=== PATIENT | male | born 1995 | race Caucasian/White ===

== ENCOUNTER 2017-01-31 18:11 | Inpatient (IN) | payer SELFPAY ==
[2017-01-31] MEDS ORDERED: Diphtheria,Pertussis(Acell),Tetanus Vaccine 0.5 ML Syringe IM ONE (18:16)
[2017-01-31] MEDS ORDERED: Ondansetron 4 MG/2 ML SDV IVPUSH ONE (18:16)
[2017-01-31] MEDS ORDERED: Sodium Chloride 0.9% 1,000 ML IV ONE (18:16)
[2017-01-31] MEDS ORDERED: Sodium Chloride 0.9% 2.5 ML Syringe FLUSH PRN (18:18)
[2017-01-31] MEDS ORDERED: Sodium Chloride 0.9% 10 ML Syringe FLUSH PRN (18:18)
[2017-01-31] MEDS ORDERED: HYDROmorphone 1 MG/ML Syringe ONE (18:20)
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
[2017-01-31 19:10] LABS: CHLORIDE,CL 106 mmol/L (98-110); SODIUM,NA 138 mmol/L (136-146)
[2017-01-31] MEDS ORDERED: Iopamidol 755 MG/ML 500 ML Multipack Bottle IVPUSH STA (19:17)
[2017-01-31] MEDS ORDERED: HYDROmorphone 2 MG/ML Syringe IVPUSH PRN (19:49)
[2017-01-31] MEDS: HYDROmorphone 2 MG/ML Syringe IVPUSH ONE (19:53)
[2017-01-31] MEDS ORDERED: Clindamycin Phosphate in D5W 900 MG in Premix Bag 1 BAG IV ONE ×2 (19:55)
[2017-01-31] MEDS ORDERED: Ondansetron 4 MG/2 ML SDV ONE (20:10)
[2017-01-31] MEDS ORDERED: Rocuronium 10 MG/ML 10 ML Syringe ONE (20:10)
[2017-01-31] MEDS ORDERED: Succinylcholine/Normal Saline 200 MG/10 ML Syringe ONE (20:10)
[2017-01-31] MEDS ORDERED: Lidocaine 2% 5 ML SDV ONE (20:10)
[2017-01-31] MEDS ORDERED: Propofol 200 MG/20 ML SDV ONE (20:10)
[2017-01-31] MEDS ORDERED: fentaNYL 250 MCG/5 ML SDV ONE (20:11)
[2017-01-31] MEDS ORDERED: Midazolam 1 MG/ML 2 ML SDV ONE (20:11)
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
--- NOTE | 2017-01-31 20:23 | PCM.PREANE ---
Preanesthetic Assessment - Anesthesia/Transfusion/Family Hx Anesthesia History: No Prior Anesthesia Family History of Anesthesia Reaction: No - Review of Systems General: No Symptoms Pulmonary: No Symptoms Cardiovascular: No Symptoms Gastrointestinal: No Symptoms Neurological: No Symptoms Other: Reports: None - Physical Assessment O2 Sat by Pulse Oximetry: 99 Respiratory Rate: 18 Vital Signs: Last Vital Signs Temp 97.9 F 01/31/17 18:22 Pulse 91 01/31/17 18:22 Resp 18 01/31/17 18:22 BP 120/79 01/31/17 18:22 Pulse Ox 97 01/31/17 20:12 Height: 6 ft 4 in Weight: 72.575 kg ASA Class: 2E Mental Status: Alert & Oriented x3 Airway Class: Mallampati = 2 Dentition: Reports: Broken Tooth/Teeth Thyro-Mental Finger Breadths: 3 Mouth Opening Finger Breadths: 3 ROM/Head Extension: Full Lungs: Clear to Auscultation, Normal Respiratory Effort Cardiovascular: Regular Rate, Regular Rhythm - Lab Values: Laboratory Last Values WBC 14.47 K/uL (4.0-11.0) H 01/31/17 18:36 RBC 5.44 M/uL (4.50-5.90) 01/31/17 18:36 Hgb 17.9 g/dL (13.0-17.0) H 01/31/17 18:36 Hct 49.1 % (38.0-50.0) 01/31/17 18:36 MCV 90.3 fL (80.0-98.0) 01/31/17 18:36 MCH 32.9 pg (27.0-32.0) H 01/31/17 18:36 MCHC 36.5 g/dL (31.0-37.0) 01/31/17 18:36 RDW Std Deviation 40.7 fl (28.0-62.0) 01/31/17 18:36 RDW Coeff of Marissa 12 % (11.0-15.0) 01/31/17 18:36 Plt Count 201 K/uL (150-400) 01/31/17 18:36 MPV 12.10 fL (7.40-12.00) H 01/31/17 18:36 Neut % (Auto) 76.1 % (48.0-80.0) 01/31/17 18:36 Lymph % (Auto) 15.1 % (16.0-40.0) L 01/31/17 18:36 [place] % (Auto) 7.9 % (0.0-15.0) 01/31/17 18:36 Eos % (Auto) 0.7 % (0.0-7.0) 01/31/17 18:36 Baso % (Auto) 0.2 % (0.0-1.5) 01/31/17 18:36 Neut # (Auto) 11.0 K/uL (1.4-5.7) H 01/31/17 18:36 Lymph # (Auto) 2.2 K/uL (0.6-2.4) 01/31/17 18:36 [place] # (Auto) 1.2 K/uL (0.0-0.8) H 01/31/17 18:36 Eos # (Auto) 0.1 K/uL (0.0-0.7) 01/31/17 18:36 Baso # (Auto) 0.0 K/uL (0.0-0.1) 01/31/17 18:36 Nucleated RBC % 0.0 /100WBC 01/31/17 18:36 Nucleated RBCs # 0 K/uL 01/31/17 18:36 INR 1.09 (0.86-1.11) 01/31/17 18:36 Sodium 138 mmol/L (136-146) 01/31/17 18:36 Potassium 3.6 mmol/L (3.5-5.1) 01/31/17 18:36 Chloride 106 mmol/L (98-110) 01/31/17 18:36 Carbon Dioxide 21 mmol/L (21-31) 01/31/17 18:36 BUN 13 mg/dL (6.0-23.0) 01/31/17 18:36 Creatinine 1.0 mg/dL (0.6-1.5) 01/31/17 18:36 Est Cr Clr Drug Dosing TNP 01/31/17 18:36 Estimated GFR (MDRD) > 60.0 ml/min 01/31/17 18:36 Glucose 99 mg/dL (60-110) 01/31/17 18:36 Calcium 9.9 mg/dL (8.8-10.8) 01/31/17 18:36 Total Bilirubin 0.9 mg/dL (0.1-1.5) 01/31/17 18:36 AST 32 IU/L (5-40) 01/31/17 18:36 ALT 31 IU/L (8-54) 01/31/17 18:36 Alkaline Phosphatase 63 (40-150) 01/31/17 18:36 Total Protein 7.1 g/dL (6.0-8.0) 01/31/17 18:36 Albumin 4.4 g/dL (3.5-5.0) 01/31/17 18:36 Globulin 2.7 g/dL (2.0-3.5) 01/31/17 18:36 Albumin/Globulin Ratio 1.6 (1.3-2.8) 01/31/17 18:36 Lipase 10 U/L (7-80) 01/31/17 18:36 Ethyl Alcohol < 10.0 mg/dL 01/31/17 18:36 Blood Type A POSITIVE 01/31/17 18:36 Antibody Screen NEGATIVE 01/31/17 18:36 - Allergies Allergies/Adverse Reactions: Allergies Allergy/AdvReac Type Severity Reaction Status Date / Time Penicillins Allergy Other Verified 01/31/17 18:22 - Acknowledgements Anesthesia Type Planned: General Anesthesia Pt an Appropriate Candidate for the Planned Anesthesia: Yes Alternatives and Risks of Anesthesia Discussed w Pt/Guardian: Yes Pt/Guardian Understands and Agrees with Anesthesia Plan: Yes PreAnesthesia Questionnaire HEENT History: Reports: None Cardiovascular History: Reports: None Respiratory History: Reports: Other (See Below) (Chest deformity since ) Gastrointestinal History: Reports: None Genitourinary History: Reports: None Musculoskeletal History: Reports: Other (See Below) (Acute Rt Femur Fx) Neurological History: Reports: Seizure (Pt states last seizure was "years ago" pt removed himself from medication not a doctor) Psychiatric History: Reports: None Endocrine/Metabolic History: Reports: None Other Hematologic History: Hx of Lupus Immunologic History: Reports: None Oncologic (Cancer) History: Reports: None Dermatologic History: Reports: None - Past Surgical History Musculoskeletal Surgical History: Reports: Other (See Below) (RUE fracture in past, no residual hardware) - SUBSTANCE USE Smoking Status *Q: Current Every Day Smoker Recreational Drug Use History: No - CURRENT (IN HOUSE) MEDS Current Meds: Current Medications Hydromorphone HCl (Dilaudid) 0.5 - 1 mg IVPUSH Q3H PRN PRN Reason: Pain Last Admin: 01/31/17 19:49 Dose: 1 mg Clindamycin Phosphate 900 mg/ (Premix) 50 mls @ 100 mls/hr IV ONETIME ONE Stop: 01/31/17 20:24 Sodium Chloride (Saline Flush) 10 ml FLUSH ASDIRECTED PRN PRN Reason: Keep Vein Open Sodium Chloride (Saline Flush) 2.5 ml FLUSH ASDIRECTED PRN PRN Reason: Keep Vein Open Discontinued Medications Diphtheria/Tetanus/Acell Pertussis (Adacel) 0.5 ml IM .ONCE ONE Stop: 01/31/17 18:17 Last Admin: 01/31/17 19:46 Dose: 0.5 ml Fentanyl (Sublimaze) Confirm Administered Dose 250 mcg .ROUTE .STK-MED ONE Stop: 01/31/17 20:12 Hydromorphone HCl (Dilaudid) 1 mg IVPUSH ONETIME ONE Stop: 01/31/17 18:17 Hydromorphone HCl (Dilaudid) Confirm Administered Dose 1 mg .ROUTE .STK-MED ONE Stop: 01/31/17 18:21 Sodium Chloride (Normal Saline) 1,000 mls @ 999 mls/hr IV STAT ONE Stop: 01/31/17 19:16 Iopamidol (Isovue Multipack-370 (76%)) 100 ml IVPUSH ONETIME STA Stop: 01/31/17 19:18 Last Admin: 01/31/17 19:17 Dose: 100 ml Lidocaine (Xylocaine-Mpf 2%) Confirm Administered Dose 5 ml .ROUTE .STK-MED ONE Stop: 01/31/17 20:11 Midazolam HCl (Versed 1 Mg/Ml) Confirm Administered Dose 2 mg .ROUTE .STK-MED ONE Stop: 01/31/17 20:12 Ondansetron HCl (Zofran) 4 mg IVPUSH ONETIME ONE Stop: 01/31/17 18:17 Last Admin: 01/31/17 19:45 Dose: 4 mg Ondansetron HCl (Zofran) Confirm Administered Dose 4 mg .ROUTE .STK-MED ONE Stop: 01/31/17 20:11 Propofol (Diprivan 20 Ml) Confirm Administered Dose 200 mg .ROUTE .STK-MED ONE Stop: 01/31/17 20:11 Rocuronium [place] (Zemuron) Confirm Administered Dose 100 mg .ROUTE .STK-MED ONE Stop: 01/31/17 20:11 Succinylcholine Chloride (Succinylcholine In Ns Pf) Confirm Administered Dose 200 mg .ROUTE .STK-MED ONE Stop: 01/31/17 20:11
--- NOTE | 2017-01-31 20:40 | PCM.OPNOTE ---
- General Post-Op/Procedure Note Date of Surgery/Procedure: 01/31/17 Operative Procedure(s): CR R femur with IM rodding Anesthesia Technique: General ET Tube Primary Surgeon: Shweta Tovar Goring Cutter: Zelda Farrell in mLs: 300 Condition: Good Free Text/Narrative:: #[id number]
[2017-01-31] MEDS ORDERED: Phenylephrine/Normal Saline 100 MCG/ML 10 ML Syringe ONE (21:18)
[2017-01-31] MEDS ORDERED: Acetaminophen/HYDROcodone 325-5 MG Tab PO PRN (21:19)
[2017-01-31] MEDS ORDERED: Acetaminophen 325 MG Tab PO PRN (21:19)
[2017-01-31] MEDS ORDERED: Ondansetron 4 MG/2 ML SDV IVPUSH PRN (21:19)
[2017-01-31] MEDS ORDERED: ePHEDrine 50 MG/ML SDV ONE (21:21)
[2017-01-31] MEDS ORDERED: Morphine PF 30 MG/30 ML PCA Vial IV SCH (21:30)
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
[2017-01-31] MEDS ORDERED: HYDROmorphone 2 MG/ML Syringe ONE (23:45)
[2017-02-01] MEDS ORDERED: Aluminum Hydroxide/Magnesium Hydroxide/Simethicone Susp 30 ML Cup PO PRN (00:07)
[2017-02-01] MEDS ORDERED: Ketorolac 30 MG/ML SDV IVPUSH PRN (00:07)
[2017-02-01] MEDS ORDERED: Bisacodyl 10 MG Supp RECTAL PRN (00:07)
[2017-02-01] MEDS ORDERED: Ondansetron 4 MG/2 ML SDV IV PRN (00:07)
[2017-02-01] MEDS ORDERED: diphenhydrAMINE 25 MG Cap PO PRN (00:07)
[2017-02-01] MEDS ORDERED: fentaNYL 100 MCG/2 ML SDV IVPUSH PRN (00:23)
[2017-02-01] MEDS ORDERED: Ondansetron 4 MG/2 ML SDV IVPUSH PRN (00:27)
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
--- NOTE | 2017-02-01 00:53 | PCM.POSTAN ---
POST ANESTHESIA ASSESSMENT - MENTAL STATUS Mental Status: Alert, Oriented - VITAL SIGNS Pulse Rate: 88 SaO2: 97 Resp Rate: 12 Blood Pressure: 139/85 - RESPIRATORY Respiratory Status: Respiratory Rate WNL, Airway Patent, O2 Saturation Stable - CARDIOVASCULAR CV Status: Pulse Rate WNL, Blood Pressure Stable - GASTROINTESTINAL GI Status: No Symptoms - PAIN Pain Score: 1 - POST OP HYDRATION Hydration Status: Adequate & Stable
[2017-02-01] MEDS: HYDROmorphone 2 MG/ML Syringe IVPUSH ONE (01:17)
[2017-02-01] MEDS: Lactated Ringers 1,000 ML IV SCH ×2 (01:24→09:33)
[2017-02-01] MEDS: Acetaminophen/HYDROcodone 325-10 MG Tab PO PRN ×4 (03:04→22:10)
[2017-02-01] MEDS: Clindamycin Phosphate in D5W 600 MG in Premix Bag 50 BAG IV SCH ×4 (05:34→13:59)
--- NOTE | 2017-02-01 05:39 | PCM48HPAN ---
Post Anesthesia Note - EVALUATION WITHIN 48HRS OF ANESTHETIC Vital Signs in Normal Range: Yes Patient Participated in Evaluation: Yes Respiratory Function Stable: Yes Airway Patent: Yes Cardiovascular Function Stable: Yes Hydration Status Stable: Yes Pain Control Satisfactory: Yes Nausea and Vomiting Control Satisfactory: Yes Mental Status Recovered: Yes
[2017-02-01 06:00] LABS: CHLORIDE,CL 104 mmol/L (98-110); SODIUM,NA 137 mmol/L (136-146)
[2017-02-01] MEDS: Rivaroxaban 10 MG Tab PO SCH (08:00)
[2017-02-01] MEDS: Docusate Sodium 100 MG Cap PO SCH ×2 (08:00→21:05)
--- NOTE | 2017-02-01 08:54 | PCM.SURGPN ---
- General Info Date of Service: 01/31/17 Date of Surgery/Procedure: 02/01/17 POD#: 1 Functional Status: Reports: Pain Controlled, Tolerating Diet, Urinating. Denies : Ambulating - Review of Systems General: Reports: No Symptoms HEENT: Reports: No Symptoms Pulmonary: Denies: Cough Cardiovascular: Denies: Chest Pain, Palpitations Gastrointestinal: Denies: Nausea Musculoskeletal: Reports: Shoulder Pain, Leg Pain Systems Review Comment:: pt sitting up in bed for breakfast tolerating PO intake well pain controlled with Montgomery 10/325 and morphine SUPERINTENDENT STATIONS has not been OOB c/o midshaft R thigh pain and R posterior shoulder pain no specific concerns today - Patient Data Vitals - Most Recent: Last Vital Signs Temp 97.3 F 02/01/17 08:00 Pulse 102 H 02/01/17 00:55 Resp 12 02/01/17 08:00 BP 112/64 02/01/17 08:00 Pulse Ox 99 02/01/17 08:00 Weight - Most Recent: 68 kg I&O - Last 24 Hours: Intake & Output 01/31/17 02/01/17 02/01/17 22:59 06:59 14:59 Intake Total 2750 Output Total 500 Balance -500 2750 Lab Results Last 24 Hrs: Laboratory Results - last 24 hr 01/31/17 01/31/17 02/01/17 Range/Units 21:35 21:35 05:25 WBC 11.28 H (4.0-11.0) K/uL RBC 4.29 L (4.50-5.90) M/uL Hgb 13.6 (13.0-17.0) g/dL Hct 39.7 (38.0-50.0) % MCV 92.5 (80.0-98.0) fL MCH 31.7 (27.0-32.0) pg MCHC 34.3 (31.0-37.0) g/dL RDW Std Deviation 41.8 (28.0-62.0) fl RDW Coeff of Marissa 13 (11.0-15.0) % Plt Count 158 (150-400) K/uL MPV 11.40 (7.40-12.00) fL Neut % (Auto) 72.4 (48.0-80.0) % Lymph % (Auto) 16.1 (16.0-40.0) % [place] % (Auto) 11.1 (0.0-15.0) % Eos % (Auto) 0.3 (0.0-7.0) % Baso % (Auto) 0.1 (0.0-1.5) % Neut # (Auto) 8.2 H (1.4-5.7) K/uL Lymph # (Auto) 1.8 (0.6-2.4) K/uL [place] # (Auto) 1.3 H (0.0-0.8) K/uL Eos # (Auto) 0.0 (0.0-0.7) K/uL Baso # (Auto) 0.0 (0.0-0.1) K/uL Nucleated RBC % 0.0 /100WBC Nucleated RBCs # 0 K/uL Sodium (136-146) mmol/L Potassium (3.5-5.1) mmol/L Chloride (98-110) mmol/L Carbon Dioxide (21-31) mmol/L BUN (6.0-23.0) mg/dL Creatinine (0.6-1.5) mg/dL Est Cr Clr Drug Dosing mL/min Estimated GFR (MDRD) ml/min Glucose (60-110) mg/dL Calcium (8.8-10.8) mg/dL Urine Color YELLOW Urine Appearance CLEAR Urine pH 7.0 (5.0-8.0) Ur Specific [place] <= 1.005 (1.001-1.035) Urine Protein NEGATIVE (NEGATIVE) mg/dL Urine Glucose (UA) NEGATIVE (NEGATIVE) mg/dL Urine Ketones TRACE H (NEGATIVE) mg/dL Urine Occult Blood MODERATE (NEGATIVE) Urine Nitrite NEGATIVE (NEGATIVE) Urine Bilirubin NEGATIVE (NEGATIVE) Urine Urobilinogen 0.2 (<2.0) EU/dL Ur Leukocyte Esterase NEGATIVE (NEGATIVE) Urine RBC 2-4 (0-2/HPF) Urine WBC 0-1 (0-5/HPF) Ur Epithelial Cells FEW (NONE-FEW) Urine Bacteria RARE (NEGATIVE) Urine Opiates Screen NEGATIVE (NEGATIVE) Ur Oxycodone Screen NEGATIVE (NEGATIVE) Urine Methadone Screen NEGATIVE (NEGATIVE) Ur Barbiturates Screen NEGATIVE (NEGATIVE) Ur Phencyclidine Scrn NEGATIVE (NEGATIVE) Ur Amphetamine Screen NEGATIVE (NEGATIVE) U Methamphetamines Scrn NEGATIVE (NEGATIVE) U Benzodiazepines Scrn NEGATIVE (NEGATIVE) U Cocaine Metab Screen NEGATIVE (NEGATIVE) U Marijuana (THC) Screen NEGATIVE (NEGATIVE) 02/01/17 Range/Units 05:25 WBC (4.0-11.0) K/uL RBC (4.50-5.90) M/uL Hgb (13.0-17.0) g/dL Hct (38.0-50.0) % MCV (80.0-98.0) fL MCH (27.0-32.0) pg MCHC (31.0-37.0) g/dL RDW Std Deviation (28.0-62.0) fl RDW Coeff of Marissa (11.0-15.0) % Plt Count (150-400) K/uL MPV (7.40-12.00) fL Neut % (Auto) (48.0-80.0) % Lymph % (Auto) (16.0-40.0) % [place] % (Auto) (0.0-15.0) % Eos % (Auto) (0.0-7.0) % Baso % (Auto) (0.0-1.5) % Neut # (Auto) (1.4-5.7) K/uL Lymph # (Auto) (0.6-2.4) K/uL [place] # (Auto) (0.0-0.8) K/uL Eos # (Auto) (0.0-0.7) K/uL Baso # (Auto) (0.0-0.1) K/uL Nucleated RBC % /100WBC Nucleated RBCs # K/uL Sodium 137 (136-146) mmol/L Potassium 4.1 (3.5-5.1) mmol/L Chloride 104 (98-110) mmol/L Carbon Dioxide 26 (21-31) mmol/L BUN 11 (6.0-23.0) mg/dL Creatinine 0.8 (0.6-1.5) mg/dL Est Cr Clr Drug Dosing 139.31 mL/min Estimated GFR (MDRD) > 60.0 ml/min Glucose 111 H (60-110) mg/dL Calcium 8.2 L (8.8-10.8) mg/dL Urine Color Urine Appearance Urine pH (5.0-8.0) Ur Specific [place] (1.001-1.035) Urine Protein (NEGATIVE) mg/dL Urine Glucose (UA) (NEGATIVE) mg/dL Urine Ketones (NEGATIVE) mg/dL Urine Occult Blood (NEGATIVE) Urine Nitrite (NEGATIVE) Urine Bilirubin (NEGATIVE) Urine Urobilinogen (<2.0) EU/dL Ur Leukocyte Esterase (NEGATIVE) Urine RBC (0-2/HPF) Urine WBC (0-5/HPF) Ur Epithelial Cells (NONE-FEW) Urine Bacteria (NEGATIVE) Urine Opiates Screen (NEGATIVE) Ur Oxycodone Screen (NEGATIVE) Urine Methadone Screen (NEGATIVE) Ur Barbiturates Screen (NEGATIVE) Ur Phencyclidine Scrn (NEGATIVE) Ur Amphetamine Screen (NEGATIVE) U Methamphetamines Scrn (NEGATIVE) U Benzodiazepines Scrn (NEGATIVE) U Cocaine Metab Screen (NEGATIVE) U Marijuana (THC) Screen (NEGATIVE) Med Orders - Current: Current Medications Acetaminophen (Tylenol) 325 mg PO Q4H PRN PRN Reason: Fever Greater Than 101 Hydrocodone Bitart/Acetaminophen (Mont[place] 325-10 Mg) 1 - 2 tab PO Q4H PRN PRN Reason: Pain Last Admin: 02/01/17 07:04 Dose: 2 tab Al Hydroxide/Mg Hydroxide (Mag-Al Plus) 30 ml PO Q4H PRN PRN Reason: indigestion Bisacodyl (Dulcolax) 10 mg RECTAL DAILY PRN PRN Reason: Constipation Diphenhydramine HCl (Benadryl) 25 - 50 mg PO Q6H PRN PRN Reason: Itching Docusate Sodium (Colace) 100 mg PO BID [facility] Last Admin: 02/01/17 08:00 Dose: 100 mg Fentanyl (Sublimaze) 50 mcg IVPUSH Q5M PRN PRN Reason: Pain (severe 7-10) Stop: 02/02/17 00:23 Hydromorphone HCl (Dilaudid) 0.5 - 1 mg IVPUSH Q3H PRN PRN Reason: Pain Last Admin: 01/31/17 19:49 Dose: 1 mg Lactated Ringer's (Ringers, Lactated) 1,000 mls @ 125 mls/hr IV ASDIRECTED [facility] Last Admin: 02/01/17 01:24 Dose: 125 mls/hr Clindamycin Phosphate 600 mg/ (Premix) 50 mls @ 100 mls/hr IV Q8H [facility] Stop: 02/01/17 14:29 Last Admin: 02/01/17 05:34 Dose: 100 mls/hr Ketorolac Tromethamine (Toradol) 30 mg IVPUSH Q6H PRN PRN Reason: Pain Stop: 02/01/17 09:00 Last Admin: 02/01/17 06:14 Dose: 30 mg Morphine Sulfate (Morphine Architectural Modeler 30 Mg In 30 Ml) 30 mg IV SEECOMMENT [facility] Last Admin: 02/01/17 01:24 Dose: 30 mg Ondansetron HCl (Zofran) 4 mg IVPUSH Q6H PRN PRN Reason: Nausea/Vomiting Ondansetron HCl (Zofran) 4 mg IVPUSH Q6HR PRN PRN Reason: NAUSEA/VOMITING Rivaroxaban (Xarelto) 10 mg PO DAILY [facility] Last Admin: 02/01/17 08:00 Dose: 10 mg Sodium Chloride (Saline Flush) 10 ml FLUSH ASDIRECTED PRN PRN Reason: Keep Vein Open Sodium Chloride (Saline Flush) 2.5 ml FLUSH ASDIRECTED PRN PRN Reason: Keep Vein Open Discontinued Medications Hydrocodone Bitart/Acetaminophen ([place] 325-5 Mg) 1 - 2 tab PO Q4H PRN PRN Reason: Pain (moderate 4-6) Diphtheria/Tetanus/Acell Pertussis (Adacel) 0.5 ml IM .ONCE ONE Stop: 01/31/17 18:17 Last Admin: 01/31/17 19:46 Dose: 0.5 ml Ephedrine Sulfate (Ephedrine Sulfate) Confirm Administered Dose 50 mg .ROUTE .STK-MED ONE Stop: 01/31/17 21:22 Fentanyl (Sublimaze) Confirm Administered Dose 250 mcg .ROUTE .STK-MED ONE Stop: 01/31/17 20:12 Glycopyrrolate () Confirm Administered Dose 1 mg .ROUTE .STK-MED ONE Stop: 01/31/17 21:39 Hydromorphone HCl (Dilaudid) 1 mg IVPUSH ONETIME ONE Stop: 01/31/17 18:17 Last Admin: 02/01/17 01:17 Dose: Not Given Hydromorphone HCl (Dilaudid) Confirm Administered Dose 1 mg .ROUTE .STK-MED ONE Stop: 01/31/17 18:21 Last Admin: 02/01/17 01:18 Dose: Not Given Hydromorphone HCl (Dilaudid) Confirm Administered Dose 2 mg .ROUTE .STK-MED ONE Stop: 01/31/17 23:46 Sodium Chloride (Normal Saline) 1,000 mls @ 999 mls/hr IV STAT ONE Stop: 01/31/17 19:16 Last Admin: 02/01/17 01:17 Dose: Not Given Clindamycin Phosphate 900 mg/ (Premix) 50 mls @ 100 mls/hr IV ONETIME ONE Stop: 01/31/17 20:24 Last Admin: 01/31/17 20:53 Dose: 100 mls/hr Iopamidol (Isovue Multipack-370 (76%)) 100 ml IVPUSH ONETIME STA Stop: 01/31/17 19:18 Last Admin: 01/31/17 19:17 Dose: 100 ml Lidocaine (Xylocaine-Mpf 2%) Confirm Administered Dose 5 ml .ROUTE .STK-MED ONE Stop: 01/31/17 20:11 Midazolam HCl (Versed 1 Mg/Ml) Confirm Administered Dose 2 mg .ROUTE .STK-MED ONE Stop: 01/31/17 20:12 Ondansetron HCl (Zofran) 4 mg IVPUSH ONETIME ONE Stop: 01/31/17 18:17 Last Admin: 01/31/17 19:45 Dose: 4 mg Ondansetron HCl (Zofran) Confirm Administered Dose 4 mg .ROUTE .STK-MED ONE Stop: 01/31/17 20:11 Ondansetron HCl (Zofran) 4 mg IV Q6HR PRN PRN Reason: NAUSEA/VOMITING Phenylephrine HCl (Phenylephrine In Ns 100 Mcg/Ml) Confirm Administered Dose 1 mg .ROUTE .STK-MED ONE Stop: 01/31/17 21:19 Propofol (Diprivan 20 Ml) Confirm Administered Dose 200 mg .ROUTE .STK-MED ONE Stop: 01/31/17 20:11 Rocuronium [place] (Zemuron) Confirm Administered Dose 100 mg .ROUTE .STK-MED ONE Stop: 01/31/17 20:11 Succinylcholine Chloride (Succinylcholine In Ns Pf) Confirm Administered Dose 200 mg .ROUTE .STK-MED ONE Stop: 01/31/17 20:11 - Exam Wound/Incisions: Dressing Dry and Intact. No: No Drainage, Erythema General: Alert, Oriented Cardiovascular: Regular Rate, Regular Rhythm Extremities: Other (RLE - ttp through thigh, thigh and calf compartments soft. dressings clean and dry. at/ehl/gastroc 5/5, dp 2+, sensation intact distally) Physical Findings Comment:: vss, afeb hgb 13.6 - Problem List Review Problem List Initiated/Reviewed/Updated: Yes - My Orders Last 24 Hours: Active Orders 24 hr Category Date Time Status Admission Status [Patient Status] [ADT] Routine ADT 01/31/17 21:20 Active Activity as Tolerated [RC] .Routine Care 02/01/17 00:07 Active Antiembolic Devices [RC] PER UNIT ROUTINE Care 01/31/17 21:22 Active Antiembolic Devices [RC] PER UNIT ROUTINE Care 02/01/17 00:09 Active Bradycardia-Neuroaxis [employer] [RC] ROUTINE Care 02/01/17 00:23 Active Dressing Change [Wound Care] [RC] Q12H Care 02/01/17 00:07 Active Hypertension-Neuroaxis [employer] [RC] ROUTINE Care 02/01/17 00:23 Active Hypotension-Neuroaxis [employer] [RC] ROUTINE Care 02/01/17 00:23 Active Intake and Output [RC] Q12H Care 01/31/17 21:18 Active Neurovascular Check [RC] Q2HR Care 02/01/17 00:06 Active Notify Provider Consults [RC] ASDIRECTED Care 01/31/17 21:25 Active Notify Provider Vital Signs [RC] ASDIRECTED Care 02/01/17 00:07 Active Oxygen Therapy [RC] PRN Care 01/31/17 21:18 Active Pulse Oximetry [RC] INTERMITTENT Care 01/31/17 21:18 Active RT Incentive Spirometry [RC] ASDIRECTED Care 02/01/17 00:06 Active RT Incentive Spirometry [RC] Q1HWA Care 01/31/17 21:18 Active Vital Signs [RC] Q1HR Care 01/31/17 21:18 Active Consult to Physician [CONS] Stat Cons 01/31/17 21:24 Active PT Evaluation and Treatment [CONS] Routine Cons 02/01/17 00:06 Active Regular Diet [DIET] Diet 02/01/17 Breakfast Active Fluoro>1Hr [CR] Routine Exams 01/31/17 23:17 Taken HEMOGLOBIN/HEMATOCRIT,HH [HEME] DAILY Lab 02/02/17 06:00 Ordered HEMOGLOBIN/HEMATOCRIT,HH [HEME] DAILY Lab 02/03/17 06:00 Ordered Acetaminophen [Tylenol] Med 01/31/17 21:19 Active 325 mg PO Q4H PRN Acetaminophen/HYDROcodone [Montgomery 325-10 MG] Med 02/01/17 00:07 Active 1 - 2 tab PO Q4H PRN Alum Hydrox/Mag Hydrox/Simeth [Mag-Al Plus] Med 02/01/17 00:07 Active 30 ml PO Q4H PRN Bisacodyl [Dulcolax] Med 02/01/17 00:07 Active 10 mg RECTAL DAILY PRN Clindamycin Phosphate in D5W [Cleocin in D5W] 600 mg Med 02/01/17 06:00 Active Premix Bag 50 bag IV Q8H Docusate Sodium [Colace] Med 02/01/17 09:00 Active 100 mg PO BID Ketorolac [Toradol] Med 02/01/17 00:07 Active 30 mg IVPUSH Q6H PRN Lactated Ringers [Ringers, Lactated] 1,000 ml Med 01/31/17 21:30 Active IV ASDIRECTED Morphine PF [Morphine SUPERINTENDENT STATIONS 30 MG in 30 ML] Med 01/31/17 21:30 Active 30 mg IV SEECOMMENT Ondansetron [Zofran] Med 01/31/17 21:19 Active 4 mg IVPUSH Q6H PRN Ondansetron [Zofran] Med 02/01/17 00:27 Active 4 mg IVPUSH Q6HR PRN Rivaroxaban [Xarelto] Med 02/01/17 09:00 Active 10 mg PO DAILY diphenhydrAMINE [Benadryl] Med 02/01/17 00:07 Active 25 - 50 mg PO Q6H PRN fentaNYL [Sublimaze] Med 02/01/17 00:23 Active 50 mcg IVPUSH Q5M PRN Antiembolic Hose [OM.PC] PER UNIT ROUTINE Oth 01/31/17 23:00 Ordered Antiembolic Hose [OM.PC] PER UNIT ROUTINE Oth 02/01/17 23:00 Ordered Antiembolic Hose [OM.PC] PER UNIT ROUTINE Oth 02/02/17 23:00 Ordered Ice Therapy [OM.PC] Routine Oth 02/01/17 00:06 Ordered Sequential Compression Device [OM.PC] Routine Oth 02/01/17 00:06 Ordered Resuscitation Status Routine Resus Stat 01/31/17 21:17 Ordered Medication Orders Acetaminophen (Tylenol) 325 mg PO Q4H PRN PRN Reason: Fever Greater Than 101 Hydrocodone Bitart/Acetaminophen ([place] 325-10 Mg) 1 - 2 tab PO Q4H PRN PRN Reason: Pain Last Admin: 02/01/17 07:04 Dose: 2 tab Admin: 02/01/17 03:04 Dose: 2 tab Al Hydroxide/Mg Hydroxide (Mag-Al Plus) 30 ml PO Q4H PRN PRN Reason: indigestion Bisacodyl (Dulcolax) 10 mg RECTAL DAILY PRN PRN Reason: Constipation Diphenhydramine HCl (Benadryl) 25 - 50 mg PO Q6H PRN PRN Reason: Itching Docusate Sodium (Colace) 100 mg PO BID [facility] Last Admin: 02/01/17 08:00 Dose: 100 mg Fentanyl (Sublimaze) 50 mcg IVPUSH Q5M PRN PRN Reason: Pain (severe 7-10) Stop: 02/02/17 00:23 Hydromorphone HCl (Dilaudid) 0.5 - 1 mg IVPUSH Q3H PRN PRN Reason: Pain Last Admin: 01/31/17 19:49 Dose: 1 mg Lactated Ringer's (Ringers, Lactated) 1,000 mls @ 125 mls/hr IV ASDIRECTED [facility] Last Admin: 02/01/17 01:24 Dose: 125 mls/hr Clindamycin Phosphate 600 mg/ (Premix) 50 mls @ 100 mls/hr IV Q8H [facility] Stop: 02/01/17 14:29 Last Admin: 02/01/17 05:34 Dose: 100 mls/hr Ketorolac Tromethamine (Toradol) 30 mg IVPUSH Q6H PRN PRN Reason: Pain Stop: 02/01/17 09:00 Last Admin: 02/01/17 06:14 Dose: 30 mg Morphine Sulfate (Morphine Architectural Modeler 30 Mg In 30 Ml) 30 mg IV SEECOMMENT [facility] Last Admin: 02/01/17 01:24 Dose: 30 mg Ondansetron HCl (Zofran) 4 mg IVPUSH Q6H PRN PRN Reason: Nausea/Vomiting Ondansetron HCl (Zofran) 4 mg IVPUSH Q6HR PRN PRN Reason: NAUSEA/VOMITING Rivaroxaban (Xarelto) 10 mg PO DAILY [facility] Last Admin: 02/01/17 08:00 Dose: 10 mg Sodium Chloride (Saline Flush) 10 ml FLUSH ASDIRECTED PRN PRN Reason: Keep Vein Open Sodium Chloride (Saline Flush) 2.5 ml FLUSH ASDIRECTED PRN PRN Reason: Keep Vein Open - Assessment Assessment (Free Text/Narrative):: POD#1 CR with IM nail R femur fx - Plan Plan (Free Text/Narrative):: continue pain management SUPERINTENDENT STATIONS discontinued at Dr. Rodríguez's discretion will DC IV dilaudid PT today for crutch training, TTWB RLE TTWB restrictions discussed with pt Xarelto 10mg PO for dvt prophylaxis (will continue for 4 weeks post-op) discussed requirements for discharge once cleared by Dr. Rodríguez - tolerating PO intake, pain controlled with PO medications, able to ambulate with crutches, void pt verbalizes understanding and agrees will schedule 2wk and 6wk post-op appointment for him.
--- NOTE | 2017-02-01 08:54 | CR ---
EXAMINATION: Portable chest radiograph. HISTORY: Contusions. FINDINGS: The trachea is midline. The cardiomediastinal silhouette is within normal limits. No pulmonary infil trates, effusions or pneumothorax. Osseous structures appear unremarkable. IMPRESSION: No acute cardiopulmonary process.
--- NOTE | 2017-02-01 10:08 | CR ---
EXAMINATION: Right femur HISTORY: Reduction COMPARISON: 01/31/2017 TECHNIQUE: 7 fluoroscopic images provided FINDINGS/IMPRESSION: Operative control films demonstrate an intramedullary sharron traversing a reduced mid right femur fracture.
--- NOTE | 2017-02-01 13:22 | PCM.SN ---
- Free Text/Narrative Note: Patient seen and examined at 1000. Patient doing well. No c/o chest pain or SOB. Pain controlled with SITE PROJECT MANAGER. Has not been OOB yet. Exam of RLE shows dressings intact. Thigh soft. No calf TTP. AT/EHL/gastroc 11/02. Sensation intact. DP 2+. 1. plan to transfer to regular floor today 2. watch O2 sats 3. d/c SITE PROJECT MANAGER--change to po meds 4. up with PT 5. plan possible d/c home tomorrow
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
[2017-02-01] MEDS: Nicotine 21 MG/24 Hr Patch TRDERM SCH (16:56)
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
[2017-02-02] MEDS: Acetaminophen/HYDROcodone 325-10 MG Tab PO PRN ×3 (02:44→10:45)
[2017-02-02] MEDS: Docusate Sodium 100 MG Cap PO SCH (08:09)
[2017-02-02] MEDS: Rivaroxaban 10 MG Tab PO SCH (08:09)
[2017-02-02] MEDS: Nicotine 21 MG/24 Hr Patch TRDERM SCH (09:47)
--- NOTE | 2017-02-02 10:23 | PCM.SURGPN ---
- General Info Date of Service: 02/02/17 Date of Surgery/Procedure: 01/31/17 POD#: 2 Functional Status: Reports: Pain Controlled, Tolerating Diet, Ambulating, Urinating - Review of Systems General: Reports: No Symptoms Pulmonary: Reports: No Symptoms Cardiovascular: Reports: No Symptoms Gastrointestinal: Reports: No Symptoms Musculoskeletal: Reports: Other (RLE pain, some L scapula pain with crutching) Systems Review Comment:: pt resting comfortably in bed did well with PT/stairs yesterday OOB independently would like to go home today - Patient Data Vitals - Most Recent: Last Vital Signs Temp 99.3 F 02/02/17 00:00 Pulse 87 02/02/17 00:00 Resp 20 02/02/17 04:00 BP 109/60 02/02/17 04:00 Pulse Ox 100 02/02/17 04:00 Weight - Most Recent: 68 kg I&O - Last 24 Hours: Intake & Output 02/01/17 02/02/17 02/02/17 22:59 06:59 14:59 Intake Total 1350 1290 Output Total 400 1350 Balance 950 -60 Lab Results Last 24 Hrs: Laboratory Results - last 24 hr 02/02/17 Range/Units 05:28 Hgb 11.5 L (13.0-17.0) g/dL Hct 33.8 L (38.0-50.0) % Med Orders - Current: Current Medications Acetaminophen (Tylenol) 325 mg PO Q4H PRN PRN Reason: Fever Greater Than 101 Hydrocodone Bitart/Acetaminophen ([place] 325-10 Mg) 1 - 2 tab PO Q4H PRN PRN Reason: Pain Last Admin: 02/02/17 06:42 Dose: 2 tab Al Hydroxide/Mg Hydroxide (Mag-Al Plus) 30 ml PO Q4H PRN PRN Reason: indigestion Bisacodyl (Dulcolax) 10 mg RECTAL DAILY PRN PRN Reason: Constipation Diphenhydramine HCl (Benadryl) 25 - 50 mg PO Q6H PRN PRN Reason: Itching Last Admin: 02/01/17 23:51 Dose: 25 mg Docusate Sodium (Colace) 100 mg PO BID JAY Last Admin: 02/02/17 08:09 Dose: 100 mg Hydromorphone HCl (Dilaudid) 0.5 - 1 mg IVPUSH Q3H PRN PRN Reason: Pain Last Admin: 01/31/17 19:49 Dose: 1 mg Nicotine (Habitrol) 21 mg TRDERM DAILY [facility] Last Admin: 02/02/17 09:47 Dose: Not Given Ondansetron HCl (Zofran) 4 mg IVPUSH Q6H PRN PRN Reason: Nausea/Vomiting Ondansetron HCl (Zofran) 4 mg IVPUSH Q6HR PRN PRN Reason: NAUSEA/VOMITING Rivaroxaban (Xarelto) 10 mg PO DAILY [facility] Last Admin: 02/02/17 08:09 Dose: 10 mg Sodium Chloride (Saline Flush) 10 ml FLUSH ASDIRECTED PRN PRN Reason: Keep Vein Open Sodium Chloride (Saline Flush) 2.5 ml FLUSH ASDIRECTED PRN PRN Reason: Keep Vein Open Discontinued Medications Hydrocodone Bitart/Acetaminophen ([place] 325-5 Mg) 1 - 2 tab PO Q4H PRN PRN Reason: Pain (moderate 4-6) Diphtheria/Tetanus/Acell Pertussis (Adacel) 0.5 ml IM .ONCE ONE Stop: 01/31/17 18:17 Last Admin: 01/31/17 19:46 Dose: 0.5 ml Ephedrine Sulfate (Ephedrine Sulfate) Confirm Administered Dose 50 mg .ROUTE .STK-MED ONE Stop: 01/31/17 21:22 Fentanyl (Sublimaze) Confirm Administered Dose 250 mcg .ROUTE .STK-MED ONE Stop: 01/31/17 20:12 Fentanyl (Sublimaze) 50 mcg IVPUSH Q5M PRN PRN Reason: Pain (severe 7-10) Stop: 02/02/17 00:23 Glycopyrrolate () Confirm Administered Dose 1 mg .ROUTE .STK-MED ONE Stop: 01/31/17 21:39 Hydromorphone HCl (Dilaudid) 1 mg IVPUSH ONETIME ONE Stop: 01/31/17 18:17 Last Admin: 02/01/17 01:17 Dose: Not Given Hydromorphone HCl (Dilaudid) Confirm Administered Dose 1 mg .ROUTE .STK-MED ONE Stop: 01/31/17 18:21 Last Admin: 02/01/17 01:18 Dose: Not Given Hydromorphone HCl (Dilaudid) Confirm Administered Dose 2 mg .ROUTE .STK-MED ONE Stop: 01/31/17 23:46 Sodium Chloride (Normal Saline) 1,000 mls @ 999 mls/hr IV STAT ONE Stop: 01/31/17 19:16 Last Admin: 02/01/17 01:17 Dose: Not Given Clindamycin Phosphate 900 mg/ (Premix) 50 mls @ 100 mls/hr IV ONETIME ONE Stop: 01/31/17 20:24 Last Admin: 01/31/17 20:53 Dose: 100 mls/hr Lactated Ringer's (Ringers, Lactated) 1,000 mls @ 125 mls/hr IV ASDIRECTED [facility] Last Admin: 02/01/17 09:33 Dose: 125 mls/hr Clindamycin Phosphate 600 mg/ (Premix) 50 mls @ 100 mls/hr IV Q8H [facility] Stop: 02/01/17 14:29 Last Admin: 02/01/17 13:59 Dose: 100 mls/hr Iopamidol (Isovue Multipack-370 (76%)) 100 ml IVPUSH ONETIME STA Stop: 01/31/17 19:18 Last Admin: 01/31/17 19:17 Dose: 100 ml Ketorolac Tromethamine (Toradol) 30 mg IVPUSH Q6H PRN PRN Reason: Pain Stop: 02/01/17 09:00 Last Admin: 02/01/17 06:14 Dose: 30 mg Lidocaine (Xylocaine-Mpf 2%) Confirm Administered Dose 5 ml .ROUTE .STK-MED ONE Stop: 01/31/17 20:11 Midazolam HCl (Versed 1 Mg/Ml) Confirm Administered Dose 2 mg .ROUTE .STK-MED ONE Stop: 01/31/17 20:12 Morphine Sulfate (Morphine [employer] 30 Mg In 30 Ml) 30 mg IV SEECOMMENT [facility] Last Admin: 02/01/17 01:24 Dose: 30 mg Ondansetron HCl (Zofran) 4 mg IVPUSH ONETIME ONE Stop: 01/31/17 18:17 Last Admin: 01/31/17 19:45 Dose: 4 mg Ondansetron HCl (Zofran) Confirm Administered Dose 4 mg .ROUTE .STK-MED ONE Stop: 08/03/17 20:11 Ondansetron HCl (Zofran) 4 mg IV Q6HR PRN PRN Reason: NAUSEA/VOMITING Phenylephrine HCl (Phenylephrine In Ns 100 Mcg/Ml) Confirm Administered Dose 1 mg .ROUTE .STK-MED ONE Stop: 01/31/17 21:19 Propofol (Diprivan 20 Ml) Confirm Administered Dose 200 mg .ROUTE .STK-MED ONE Stop: 01/31/17 20:11 Rocuronium [place] (Zemuron) Confirm Administered Dose 100 mg .ROUTE .STK-MED ONE Stop: 01/31/17 20:11 Succinylcholine Chloride (Succinylcholine In Ns Pf) Confirm Administered Dose 200 mg .ROUTE .STK-MED ONE Stop: 01/31/17 20:11 - Exam Wound/Incisions: Healing Well. No: Drainage, Erythema General: Alert, Oriented Cardiovascular: Regular Rate, Regular Rhythm Extremities: Other (RLE - ttp over fx site, thigh/calf soft. incisions clean/dry /cameron in place. at/ehl/gastroc 5/5, dp 2+, sensation intact distally) Physical Findings Comment:: vss, afeb hgb 11.5 - Problem List Review Problem List Initiated/Reviewed/Updated: Yes - My Orders Last 24 Hours: Active Orders 24 hr Category Date Time Status Change Admitting Physician [ADT] Routine ADT 02/01/17 09:31 Ordered Transfer Patient (Change bed) [ADT] Routine ADT 02/01/17 13:23 Ordered Notify Provider Consults [RC] ASDIRECTED Care 02/01/17 10:11 Active Notify Provider Consults [RC] ASDIRECTED Care 02/01/17 13:06 Active Ready for Discharge [RC] PER UNIT ROUTINE Care 02/02/17 10:16 Ordered Consult to Physician [CONS] Routine Cons 02/01/17 13:05 Active HEMOGLOBIN/HEMATOCRIT,HH [HEME] DAILY Lab 02/03/17 06:00 Ordered Nicotine [Habitrol] Med 02/01/17 17:00 Active 21 mg TRDERM DAILY Antiembolic Hose [OM.PC] PER UNIT ROUTINE Oth 02/01/17 23:00 Ordered Antiembolic Hose [OM.PC] PER UNIT ROUTINE Oth 02/02/17 23:00 Ordered Medication Orders Acetaminophen (Tylenol) 325 mg PO Q4H PRN PRN Reason: Fever Greater Than 101 Hydrocodone Bitart/Acetaminophen ([place] 325-10 Mg) 1 - 2 tab PO Q4H PRN PRN Reason: Pain Last Admin: 02/02/17 06:42 Dose: 2 tab Admin: 02/02/17 02:44 Dose: 2 tab Admin: 02/01/17 22:10 Dose: 2 tab Admin: 02/01/17 18:21 Dose: 2 tab Admin: 02/01/17 07:04 Dose: 2 tab Admin: 02/01/17 03:04 Dose: 2 tab Al Hydroxide/Mg Hydroxide (Mag-Al Plus) 30 ml PO Q4H PRN PRN Reason: indigestion Bisacodyl (Dulcolax) 10 mg RECTAL DAILY PRN PRN Reason: Constipation Diphenhydramine HCl (Benadryl) 25 - 50 mg PO Q6H PRN PRN Reason: Itching Last Admin: 02/01/17 23:51 Dose: 25 mg Docusate Sodium (Colace) 100 mg PO BID [facility] Last Admin: 02/02/17 08:09 Dose: 100 mg Admin: 02/01/17 21:05 Dose: 100 mg Admin: 02/01/17 08:00 Dose: 100 mg Hydromorphone HCl (Dilaudid) 0.5 - 1 mg IVPUSH Q3H PRN PRN Reason: Pain Last Admin: 01/31/17 19:49 Dose: 1 mg Nicotine (Habitrol) 21 mg TRDERM DAILY [facility] Last Admin: 02/02/17 09:47 Dose: Not Given Admin: 02/01/17 16:56 Dose: 21 mg Ondansetron HCl (Zofran) 4 mg IVPUSH Q6H PRN PRN Reason: Nausea/Vomiting Ondansetron HCl (Zofran) 4 mg IVPUSH Q6HR PRN PRN Reason: NAUSEA/VOMITING Rivaroxaban (Xarelto) 10 mg PO DAILY [facility] Last Admin: 02/02/17 08:09 Dose: 10 mg Admin: 02/01/17 08:00 Dose: 10 mg Sodium Chloride (Saline Flush) 10 ml FLUSH ASDIRECTED PRN PRN Reason: Keep Vein Open Sodium Chloride (Saline Flush) 2.5 ml FLUSH ASDIRECTED PRN PRN Reason: Keep Vein Open - Assessment Assessment (Free Text/Narrative):: POD#2 CR R femur with IM nail acute posthemorrhagic anemia - Plan Plan (Free Text/Narrative):: dressings changed TTWB discussed follow-up as scheduled d/ch summary #[id number]
[2017-02-02 10:35] VITALS: BP 116/57
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
== END 2017-02-02 11:05 | disposition home or self-care (01) | DRG 956 ==
LOC: MW.ED 18:11 → MW.SDS 19:54 → MW.MS 20:32 → MW.ICU 21:01
PROVIDERS: ADMIT Surgery; ATTEND Surgery
PROC: 0QS804Z Reposition Right Femoral Shaft with Internal Fixation Device, Open Approach (ICD-10-PCS; principal; 2017-01-31)
DX: S72.301A Unspecified fracture of shaft of right femur, initial encounter for closed fracture (principal); S27.322A Contusion of lung, bilateral, initial encounter; D62 Acute posthemorrhagic anemia; S22.32XA Fracture of one rib, left side, initial encounter for closed fracture; V23.4XXA Motorcycle driver injured in collision with car, pick-up truck or van in traffic accident, initial encounter; Y92.414 Local residential or business street as the place of occurrence of the external cause; S42.002A Fracture of unspecified part of left clavicle, initial encounter for closed fracture; T14.8 Other injury of unspecified body region; S42.115A Nondisplaced fracture of body of scapula, left shoulder, initial encounter for closed fracture; R56.9 Unspecified convulsions; M32.9 Systemic lupus erythematosus, unspecified; F17.200 Nicotine dependence, unspecified, uncomplicated; Z88.0 Allergy status to penicillin; S50.311A Abrasion of right elbow, initial encounter; S90.511A Abrasion, right ankle, initial encounter; S80.212A Abrasion, left knee, initial encounter; S80.211A Abrasion, right knee, initial encounter; S70.211A Abrasion, right hip, initial encounter
CPT/HCPCS: 01220; 36415; 70450; 70450-26; 71010; 71010-26; 71260; 71260-26; 72125; 72125-26; 72170; 72170-26; 73030-26-LT; 73030-LT; 73070-26-RT; 73070-RT; 73552-26-LT; 73552-RT; 73590-26-RT; 73590-RT; 73600-26-RT; 73600-RT; 73630-26-RT; 73630-RT; 74177; 74177-26; 76001; 76001-26; 80048; 80053; 80305; 81001; 83690; 85014; 85018; 85025; 85610; 86850; 86900; 86901; 90471; 90715; 93005; 96374; 96375; 97161-GP; 97530-GP; 99285; 99285-25; A9270-GY; C1713; C1769; G0480; J1170; J1885; J2250; J2274; J2405; J2704; J3010; J7120; Q9967